=== PATIENT | female | born 1960 | race Caucasian/White ===

== ENCOUNTER 2017-05-09 08:19 | Observation (INO) | payer BC ==
[~2017-05-09] VITALS: Ht 165.1 cm; Wt 95.3 kg
[~2017-05-09 08:19] MED LIST: AUGMENTIN875 MG PO; CELEXA40 MG PO; DEXILANT60 MG PO; WELLBUTRIN XL300 MG PO; ZESTRIL40 MG PO
[2017-05-09 09:02] LABS: HEMATOCRIT 38.6 % (36.0-46.0); MCH 30.2 PG (29.0-34.0); MCHC 33.4 G/DL (30.0-36.0); MCV 90.4 FL (83-99); MEAN PLAT.VOLUME 10.2 uM^3 (9.5-12.4); PLATELET COUNT 255 K/uL (156-360); RBC DIS.WIDTH-CV 14.9 % (11.8-14.6); RBC DIS.WIDTH-SD 49.1 % (39-53); RED BLOOD COUNT 4.27 M/uL (3.80-5.20); WHITE BLOOD COUNT 11.8 K/uL (4.1-10.2)
[2017-05-09 09:13] LABS: CHLORIDE 102 mEq/L (99-109); POTASSIUM 3.5 mEq/L (3.7-5.4); SODIUM 140 mEq/L (136-147)
[2017-05-09 09:15] LABS: GLUCOSE 123 mg/dL (70-99)
[2017-05-09 09:16] LABS: ANION GAP 10 MEQ/L (2-14)
[2017-05-09 09:17] LABS: TOTAL BILIRUBIN 0.9 mg/dL (0.0-1.0)
[2017-05-09 09:18] LABS: ALKALINE PHOSPHATASE 104 IU/L (3-129)
[2017-05-09 09:19] LABS: GFR ESTIMATE (CALCULATED) > 59 mL/min/
[2017-05-09 09:20] LABS: UREA NITROGEN (BUN) 10 mg/dL (9-23)
[2017-05-09 09:22] LABS: LIPASE 13 U/L (1.0-51.0)
[2017-05-09] MEDS ORDERED: ATORVASTATIN CA40 MG PO (11:32)
[2017-05-09] MEDS ORDERED: HYDROCHLOROTHIA25 MG PO (11:33)
[2017-05-09] MEDS ORDERED: DILTIAZEM 24HR240 MG PO (11:33)
[2017-05-09 12:10] LABS: ADD MIUA? YES; BILIRUBIN NEGATIVE; BLOOD NEGATIVE; COLOR YELLOW ((YELLOW)); GLUCOSE (STRIP) NEGATIVE; KETONES NEGATIVE; LEUKOCYTES NEGATIVE; NITRITE NEGATIVE; PROTEIN (STRIP) NEGATIVE; SPECIFIC GRAVITY 1.015 (1.000-1.030)
[2017-05-09 12:18] LABS: BACTERIA RARE /HPF; EPITHELIAL CELLS 2+ /HPF; MUCUS 1+ /LPF; RED BLOOD CELLS 0-5 /HPF (0-5); UCUL ADDED? NO; WHITE BLOOD CELLS 0-5 /HPF (0-5)
[2017-05-09] MEDS ORDERED: COLACE100 MG PO (14:07)
[2017-05-09] MEDS ORDERED: PERCOCET 5/31 TABLET PO (14:07)
[2017-05-09 16:00] VITALS: BP 108/55
[2017-05-09 19:21] VITALS: BP 111/56
[2017-05-09 23:58] VITALS: BP 100/55
[2017-05-10 03:29] VITALS: BP 101/50
[2017-05-10 07:21] VITALS: BP 146/60
[2017-05-10 11:47] LABS: EOSINOPHIL (%) 0.1 % (0-5); HEMATOCRIT 35.7 % (36.0-46.0); IMMATURE GRANULOCYTE (%) 0.3 % (0.0-0.7); LYMPHOCYTE COUNT 0.9 K/uL (1.0-2.8); MCH 30.3 PG (29.0-34.0); MCHC 33.6 G/DL (30.0-36.0); MCV 90.2 FL (83-99); MEAN PLAT.VOLUME 10.2 uM^3 (9.5-12.4); MONOCYTE (%) 6.1 % (3-12); MONOCYTE COUNT 0.6 K/uL (0-0.8); NEUTROPHIL (%) 84.1 % (45-76); PLATELET COUNT 259 K/uL (156-360); RBC DIS.WIDTH-CV 14.4 % (11.8-14.6); RBC DIS.WIDTH-SD 47.7 % (39-53); RED BLOOD COUNT 3.96 M/uL (3.80-5.20); WHITE BLOOD COUNT 9.6 K/uL (4.1-10.2)
[2017-05-10] MEDS ORDERED: TYLENOL WITH C1 EACH PO (12:28)
== END 2017-05-10 12:50 | disposition home or self-care (01) ==
LOC: EME 08:19 → 2EAST 11:32 → EDOF 11:32 → ENRESERV 11:38 → 2EAST 15:22
PROVIDERS: Physician Assistant
PROC: 0DTJ4ZZ Resection of Appendix, Percutaneous Endoscopic Approach (ICD-10-PCS; principal; 2017-05-09)
DX: K35.80 Unspecified acute appendicitis (principal); I10 Essential (primary) hypertension; F32.9 Major depressive disorder, single episode, unspecified; F41.9 Anxiety disorder, unspecified; K21.9 Gastro-esophageal reflux disease without esophagitis; E78.5 Hyperlipidemia, unspecified; Z82.49 Family history of ischemic heart disease and other diseases of the circulatory system; Z82.3 Family history of stroke; Z80.8 Family history of malignant neoplasm of other organs or systems
CPT/HCPCS: 74177; 80053; 81003; 83690; 85025; 85027; 88304; 93005; 99281; 99285; G0378; J0131; J0295; J0330; J1100; J1170; J2250; J2270; J2405; J2710; J3010; J7030; J7050

== ENCOUNTER 2017-12-17 16:16 | Emergency (ER) | payer BC ==
[~2017-12-17] VITALS: Ht 165.1 cm; Wt 93.6 kg
[~2017-12-17 16:16] MED LIST changes: +ATORVASTATIN CA40 MG PO; +COLACE100 MG PO; +DILTIAZEM 24HR240 MG PO; +HYDROCHLOROTHIA25 MG PO; +PERCOCET 5/31 TABLET PO; +TYLENOL WITH C1 EACH PO
[2017-12-18 00:39] VITALS: BP 135/68
== END 2017-12-18 00:39 | disposition short-term general hospital (02) ==
LOC: EME 16:16
PROC: 0QSDXZZ Reposition Right Patella, External Approach (ICD-10-PCS; principal; 2017-12-17)
DX: S83.014A Lateral dislocation of right patella, initial encounter (principal); S72.421A Displaced fracture of lateral condyle of right femur, initial encounter for closed fracture; S82.041A Displaced comminuted fracture of right patella, initial encounter for closed fracture; S82.831A Other fracture of upper and lower end of right fibula, initial encounter for closed fracture; W11.XXXA Fall on and from ladder, initial encounter; M85.88 Other specified disorders of bone density and structure, other site; M71.21 Synovial cyst of popliteal space [Baker], right knee; I10 Essential (primary) hypertension; E78.00 Pure hypercholesterolemia, unspecified
CPT/HCPCS: 73560; 73700; 99281; 99285; J3010

== ENCOUNTER 2018-01-12 14:10 | Inpatient (IN) | payer BC ==
[~2018-01-12] VITALS: Ht 165.1 cm; Wt 95.1 kg
[2018-01-12 14:54] LABS: BASOPHIL (%) 0.4 % (0-1); EOSINOPHIL (%) 1.8 % (0-5); EOSINOPHIL COUNT 0.2 K/uL (0-0.3); HEMOGLOBIN 12.5 G/DL (11.9-15.5); IMMATURE GRANULOCYTE (%) 0.4 % (0.0-0.7); LYMPHOCYTE (%) 11.2 % (15-42); LYMPHOCYTE COUNT 0.9 K/uL (1.0-2.8); MCH 29.9 PG (29.0-34.0); MCHC 33.8 G/DL (30.0-36.0); MCV 88.5 FL (83-99); MONOCYTE (%) 6.5 % (3-12); MONOCYTE COUNT 0.6 K/uL (0-0.8); NEUTROPHIL (%) 79.7 % (45-76); NEUTROPHIL COUNT 6.7 K/uL (1.8-6.4); PLATELET COUNT 266 K/uL (156-360); RBC DIS.WIDTH-CV 14.5 % (11.8-14.6); RBC DIS.WIDTH-SD 46.4 % (39-53); RED BLOOD COUNT 4.18 M/uL (3.80-5.20); WHITE BLOOD COUNT 8.4 K/uL (4.1-10.2)
[2018-01-12 14:59] LABS: INTER. NORMALIZED RATIO 1.2
[2018-01-12 15:02] LABS: PTT 25.8 SEC (25-37)
[2018-01-12 15:04] LABS: CHLORIDE 103 mEq/L (99-109); POTASSIUM 2.9 mEq/L (3.7-5.4); SODIUM 142 mEq/L (136-147)
[2018-01-12 15:06] LABS: GLUCOSE 133 mg/dL (70-99)
[2018-01-12 15:10] LABS: GFR ESTIMATE (CALCULATED) > 59 mL/min/
[2018-01-12 15:11] LABS: UREA NITROGEN (BUN) 19 mg/dL (9-23)
[2018-01-12 15:15] LABS: TROP-I INTERPRETATION NEGATIVE; TROPONIN-I 0.23 ng/mL (0.0-0.30)
[2018-01-12] MEDS ORDERED: LITE COAT ASPI325 M1 PO (16:41)
[2018-01-12] MEDS ORDERED: PERCOCET 5/31 TABLET PO (16:42)
[2018-01-12] MEDS ORDERED: WELLBUTRIN XL150 MG PO (16:42)
[2018-01-12] MEDS ORDERED: CELEXA20 MG PO (16:42)
[2018-01-12 20:34] VITALS: BP 126/69
[2018-01-12 23:10] VITALS: BP 136/79
[2018-01-13 03:15] VITALS: BP 135/79
[2018-01-13 06:16] LABS: HEMATOCRIT 33.4 % (36.0-46.0); MCH 29.7 PG (29.0-34.0); MCHC 32.9 G/DL (30.0-36.0); MCV 90.3 FL (83-99); PLATELET COUNT 225 K/uL (156-360); RBC DIS.WIDTH-CV 14.6 % (11.8-14.6); RBC DIS.WIDTH-SD 47.9 % (39-53); WHITE BLOOD COUNT 7.5 K/uL (4.1-10.2)
[2018-01-13 06:39] LABS: ALBUMIN 3.3 G/DL (3.2-4.8); ALKALINE PHOSPHATASE 105 IU/L (3-129); ALT (GPT) 9 IU/L (3-49); AST (GOT) 11 IU/L (2-34); CHLORIDE 105 MEQ/L (99-109); CREATININE 0.8 MG/DL (0.6-1.3); GFR ESTIMATE (CALCULATED) > 59 mL/min/; GLUCOSE 112 mg/dL (70-99); SODIUM 143 MEQ/L (136-147); TOTAL BILIRUBIN 0.5 MG/DL (0.0-1.0); TOTAL PROTEIN 5.3 G/DL (6.4-8.3); UREA NITROGEN (BUN) 15 mg/dL (9-23)
[2018-01-13 06:41] LABS: POTASSIUM 3.5 MEQ/L (3.7-5.4)
[2018-01-13 07:43] VITALS: BP 117/74
[2018-01-13 09:03] LABS: TROP-I INTERPRETATION NEGATIVE
[2018-01-13] MEDS ORDERED: ELIQUIS5 MG PO (10:25)
[2018-01-13 12:04] VITALS: BP 122/72
[2018-01-13 12:29] LABS: TROP-I INTERPRETATION NEGATIVE; TROPONIN-I 0.08 ng/mL (0.0-0.30)
[2018-01-13 15:26] VITALS: BP 127/62
[2018-01-13 20:22] VITALS: BP 106/58
[2018-01-14 00:26] VITALS: BP 142/69
[2018-01-14 04:08] VITALS: BP 124/72
[2018-01-14 06:32] LABS: BASOPHIL (%) 0.4 % (0-1); EOSINOPHIL (%) 2.8 % (0-5); EOSINOPHIL COUNT 0.2 K/uL (0-0.3); HEMATOCRIT 32.2 % (36.0-46.0); HEMOGLOBIN 10.5 G/DL (11.9-15.5); IMMATURE GRANULOCYTE (%) 0.5 % (0.0-0.7); LYMPHOCYTE (%) 21.7 % (15-42); LYMPHOCYTE COUNT 1.7 K/uL (1.0-2.8); MCH 29.7 PG (29.0-34.0); MCHC 32.6 G/DL (30.0-36.0); MONOCYTE (%) 8.6 % (3-12); MONOCYTE COUNT 0.7 K/uL (0-0.8); PLATELET COUNT 218 K/uL (156-360); RBC DIS.WIDTH-CV 14.7 % (11.8-14.6); RBC DIS.WIDTH-SD 48.9 % (39-53); RED BLOOD COUNT 3.54 M/uL (3.80-5.20); WHITE BLOOD COUNT 7.6 K/uL (4.1-10.2)
[2018-01-14 06:58] LABS: CHLORIDE 104 MEQ/L (99-109); CREATININE 0.9 MG/DL (0.6-1.3); GFR ESTIMATE (CALCULATED) > 59 mL/min/; GLUCOSE 110 mg/dL (70-99); SODIUM 144 MEQ/L (136-147); UREA NITROGEN (BUN) 13 mg/dL (9-23)
[2018-01-14 08:53] VITALS: BP 112/70
[2018-01-14 12:23] VITALS: BP 125/67
[2018-01-14 16:30] VITALS: BP 120/60
[2018-01-14 19:34] VITALS: BP 141/69
[2018-01-15] VITALS (7 sets, daily range): BP systolic 120–130; BP diastolic 65–77
[2018-01-16 03:40] VITALS: BP 134/76
[2018-01-16 07:16] VITALS: BP 122/71
[2018-01-16 11:57] VITALS: BP 114/60
[2018-01-16 18:50] VITALS: BP 116/56
[2018-01-16 23:06] VITALS: BP 122/60
[2018-01-17 04:01] VITALS: BP 123/66
[2018-01-17 07:06] VITALS: BP 118/63
[2018-01-17 11:16] VITALS: BP 136/66
== END 2018-01-17 14:00 | disposition home or self-care (01) | DRG 176 ==
LOC: EME 14:10 → EDOF 17:37 → 2EAST 17:37 → ENRESERV 17:39 → 2EAST 19:50
PROVIDERS: Emergency Medicine; Hospitalist
DX: I26.99 Other pulmonary embolism without acute cor pulmonale (principal); I27.20 Pulmonary hypertension, unspecified; R94.31 Abnormal electrocardiogram [ECG] [EKG]; R79.89 Other specified abnormal findings of blood chemistry; I10 Essential (primary) hypertension; R09.02 Hypoxemia; E78.00 Pure hypercholesterolemia, unspecified; E87.6 Hypokalemia; E78.5 Hyperlipidemia, unspecified; K21.9 Gastro-esophageal reflux disease without esophagitis; F32.9 Major depressive disorder, single episode, unspecified; F41.9 Anxiety disorder, unspecified; Z98.890 Other specified postprocedural states; Z79.82 Long term (current) use of aspirin
CPT/HCPCS: 71275; 80048; 80053; 82272; 83605; 83785 90; 83880; 84484; 85025; 85027; 85610; 85730; 93005; 93306; 94799; 99281; 99285